=== PATIENT | male | born 1990 | race Two or more races ===

== ENCOUNTER 2017-08-29 15:47 | Emergency (ER) | payer BC ==
[~2017-08-29] VITALS: Ht 175.3 cm; Wt 101.4 kg
[2017-08-29 15:51] VITALS: BP 133/84
[2017-08-29 16:35] LABS: RAPID INFLUENZA A Negative (Negative); RAPID INFLUENZA B Negative (Negative)
== END 2017-08-29 20:27 | disposition home or self-care (01) ==
LOC: ED 18:00
DX: B34.9 Viral infection, unspecified (principal)
CPT/HCPCS: 71046; 87400; 99285